=== PATIENT | female | born 1950 | race Caucasian/White ===

== ENCOUNTER 2016-09-16 12:44 | Emergency (ER) | payer MEDICARE ==
[2016-09-16 15:12] VITALS: BP 123/67
--- NOTE | 2016-09-16 15:23 | UC ---
Respiratory Complaint HPI - HPI Summary HPI Summary: 1 WEEK OF OF WET PRODUCTIVE COUGH, FATIGUE AND CONGESTION. RIBS HURT DIFFUSELY WITH COUGH. 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 Negative: Fever - Allergies/Home Medications Allergies/Adverse Reactions: Allergies Allergy/AdvReac Type Severity Reaction Status Date / Time No Known Allergies Allergy Verified 09/16/16 13:19 Home Medications: Home Medications Lisinopril [Lisinopril 2.5 MG-] 2.5 mg PO DAILY 09/16/16 [History Confirmed 09/26] PMH/Surg Hx/FS Hx/Imm Hx - Additional Past Medical History Additional PMH: ARTHRITIS Endocrine History: Hypothyroidism, Dyslipidemia Cardiovascular History: Hypertension - Surgical History Surgical History: Yes Surgery Procedure, Year, and Place: hysterectomy - Family History Known Family History: Positive: Hypertension - Social History Alcohol Use: None Substance Use Type: None Smoking Status (MU): Former Smoker Review of Systems Constitutional: Fatigue Respiratory: Cough Cardiovascular: Negative Gastrointestinal: Negative Musculoskeletal: Myalgia All Other Systems Reviewed And Are Negative: Yes Physical Exam Triage Information Reviewed: Yes Appearance: Well-Appearing, No Pain Distress, Well-Nourished Vital Signs: Initial Vital Signs Temp 98.5 F 09/16/16 13:16 Pulse 102 09/16/16 13:16 Resp 18 09/16/16 13:16 BP 111/72 09/16/16 13:16 Pulse Ox 98 09/16/16 13:16 Vital Signs Reviewed: Yes Eyes: Positive: Conjunctiva Clear ENT: Positive: Hearing grossly normal Neck: Positive: Supple, Nontender, No Lymphadenopathy Respiratory: Positive: No respiratory distress, No accessory muscle use, Decreased breath sounds, Rhonchi - OCCASIONAL Cardiovascular: Positive: Tachycardia Abdomen Description: Positive: Soft Neurological: Positive: Alert Psychological: Positive: Normal Response To Family, Age Appropriate Behavior Skin: Negative: rashes UC Diagnostic Evaluation - Laboratory O2 Sat by Pulse Oximetry: 84 - Radiology Xray Interpretation: Positive (See Comments) - COPD. LEFT LOWER LUNG CONSOLIDATION. Radiology Interpretation Completed By: Radiologist Respiratory Course/Dx - Course Course Of Treatment: REPEAT ROUTINE VITALS REVEALED O2SAT OF 84% SO PT WAS PLACED ON 2L O2 BY [place]. PT DID NOT FEEL ACUTELY SOB. O2 WAS REMOVED PRIOR TO XRAY. PT AMBULATED TO XRAY AND BACK AND SATS TRANSIENTLY DROPPED TO 91%. AFTER RETURN TO ROOM HELD SATS AT 95-100% ON RA. DOES NOT USE O2 AT HOME. - Differential Dx/Diagnosis Provider Diagnoses: LEFT LOWER LOBE PNEUMONIA Discharge - Discharge Plan Condition: Stable Disposition: HOME Prescriptions: Levofloxacin TAB* [Levaquin 500 Tab*] 500 mg PO DAILY #10 tab Patient Education Materials: Pneumonia (ED) Referrals: Ana Maria Barone NP [Primary Care Provider] - 3 Days (KEEP YOUR APPT ON MONDAY FOR RECHECK) Additional Instructions: CHEST XRAY TODAY SHOWS LEFT LOWER LOB PNEUMONIA. TAKE ANTIBIOTICS FOR THE FULL 10 DAYS. TAKE DEEP BREATHS TO KEEP YOUR LUNGS EXPANDED. SEEK FOLLOW-UP IF YOU ARE NOT IMPROVING EXPECTED.
--- NOTE | 2016-09-16 15:43 | RAD ---
HISTORY: Cough shortness of breath COMPARISONS: None VIEWS: 4: Frontal dual-energy and lateral views of the chest. FINDINGS: CARDIOMEDIASTINAL SILHOUETTE: The cardiomediastinal silhouette is normal. CORAL: The coral are normal. PLEURA: The costophrenic angles are sharp. No pleural abnormalities are noted. LUNG PARENCHYMA: There is hyperinflation. There is confluent alveolar opacification in the left lung base ABDOMEN: The upper abdomen is clear. There is no subphrenic gas. BONES AND SOFT TISSUES: No bone or soft tissue abnormalities are noted. OTHER: None. IMPRESSION: 1. COPD. 2. LEFT LOWER LUNG CONSOLIDATION. RECOMMEND FOLLOW-UP UNTIL RESOLUTION TO EXCLUDE UNDERLYING PULMONARY PARENCHYMAL PATHOLOGY.
== END 2016-09-16 16:06 | disposition home or self-care (01) ==
LOC: UCEAST 12:44
DX: J18.9 Pneumonia, unspecified organism (principal); Z87.891 Personal history of nicotine dependence; I10 Essential (primary) hypertension
CPT/HCPCS: 71020; 99212; G0463

== ENCOUNTER 2017-12-09 08:46 | Emergency (ER) | payer MEDICARE, OTHER ==
[2017-12-09 08:57] VITALS: BP 143/89
--- NOTE | 2017-12-09 09:11 | UC ---
Respiratory Complaint HPI - HPI Summary HPI Summary: c/o upper respiratory symptoms for the past 2 days, which are worsening. She states she has yellow dark phlegm when coughing. States she quit smoking many years ago and denies history of asthma or COPD. She states there are several smokers in the house but they do it outdoors. States she is seldomly sick but last time it was in September and she was diagnosed with pneumonia even when she did not feel sick. She has the custody of a 2 year old great grandchild and denies disease in her. Denies fever, facial pain, vomiting or diarrhea - History of Current Complaint Chief Complaint: UCRespiratory Stated Complaint: COUGH CONGESTION Time Seen by Provider: 12/09/17 08:47 Hx Obtained From: Patient ?: No Onset/Duration: Sudden Onset, Lasting Days Severity Initially: Mild Severity Currently: Moderate Pain Intensity: 4 Character: Cough: Productive Aggravating Factors: Deep Breaths Associated Signs And Symptoms: Positive: URI, Nasal Congestion - Risk Factors Pulmonary Embolism Risk Factors: Negative Cardiac Risk Factors: Hypertension Tuberculosis Risk Factors: Negative - Allergies/Home Medications Allergies/Adverse Reactions: Allergies Allergy/AdvReac Type Severity Reaction Status Date / Time No Known Allergies Allergy Verified 12/09/17 08:57 PMH/Surg Hx/FS Hx/Imm Hx Endocrine History: Hypothyroidism, Dyslipidemia Cardiovascular History: Hypertension - Surgical History Surgical History: Yes Surgery Procedure, Year, and Place: hysterectomy - Family History Known Family History: Positive: Hypertension - Social History Alcohol Use: None Substance Use Type: None Smoking Status (MU): Former Smoker Review of Systems Constitutional: Negative ENT: Nasal Discharge, Sinus Congestion Respiratory: Cough All Other Systems Reviewed And Are Negative: Yes Physical Exam Triage Information Reviewed: Yes Appearance: Well-Appearing, No Pain Distress, Well-Nourished Vital Signs: Initial Vital Signs Temp 98.4 F 12/09/17 08:53 Pulse 100 12/09/17 08:53 Resp 20 12/09/17 08:53 BP 143/89 12/09/17 08:53 Pulse Ox 97 12/09/17 08:53 Vital Signs Reviewed: Yes Eyes: Positive: Conjunctiva Clear ENT: Positive: Hearing grossly normal, Pharynx normal, TMs normal, Uvula midline Neck: Positive: Supple, Nontender, No Lymphadenopathy Respiratory: Positive: Chest non-tender, Lungs clear, Normal breath sounds, No respiratory distress Cardiovascular: Positive: RRR, No Murmur, Pulses Normal, Brisk Capillary Refill Abdomen Description: Positive: Nontender, No Organomegaly, Soft Musculoskeletal: Positive: Strength Intact, ROM Intact, No Edema Skin Exam: Normal UC Diagnostic Evaluation - Laboratory O2 Sat by Pulse Oximetry: 97 Respiratory Course/Dx - Course Course Of Treatment: patient with URI symptoms for the past 2 days along with productive cough. Chest xray shows hyperinflation consistent with COPD. Continue supportive care, hydration, hand hygiene and follow up with PCP in a week. - Differential Dx/Diagnosis Provider Diagnoses: URI viral. HTN Discharge - Sign-Out/Discharge Documenting (check all that apply): Patient Departure All imaging exams completed and their final reports reviewed: Yes - Discharge Plan Condition: Stable Disposition: HOME Patient Education Materials: COPD (Chronic Obstructive Pulmonary Disease) (ED) , Chronic Hypertension (ED), Viral Syndrome (ED) Referrals: Ana Maria Barone NP [Primary Care Provider] - - Billing Disposition and Condition Condition: STABLE Disposition: Home
--- NOTE | 2017-12-09 09:45 | RAD ---
HISTORY: productive cough and malaise r/o pneumonia COMPARISONS: September 16, 2016 VIEWS: 4: Frontal dual-energy and lateral views of the chest. FINDINGS: CARDIOMEDIASTINAL SILHOUETTE: The cardiomediastinal silhouette is normal. CORAL: The coral are normal. PLEURA: The costophrenic angles are sharp. No pleural abnormalities are noted. LUNG PARENCHYMA: There is hyperinflation with flattening of the diaphragm and expansion of the AP diameter of the chest. ABDOMEN: The upper abdomen is clear. There is no subphrenic gas. BONES AND SOFT TISSUES: Degenerative changes are noted OTHER: None. IMPRESSION: HYPERINFLATION, CONSISTENT WITH COPD. NO ACTIVE CARDIOPULMONARY DISEASE.
== END 2017-12-09 09:58 | disposition home or self-care (01) ==
LOC: UCEAST 08:46
DX: J06.9 Acute upper respiratory infection, unspecified (principal); I10 Essential (primary) hypertension; Z87.891 Personal history of nicotine dependence; Z77.22 Contact with and (suspected) exposure to environmental tobacco smoke (acute) (chronic)
CPT/HCPCS: 71046; 99211; G0463